=== PATIENT | female | born 1965 | race Caucasian/White ===

== ENCOUNTER 2018-07-16 06:53 | Inpatient (IN) | payer MEDICAID, OTHER ==
[~2018-07-16] VITALS: Ht 162.6 cm; Wt 116.5 kg
[2018-07-16] MEDS ORDERED: morphine 4 MG/ML inj SYRINge IV PRN (07:15)
[2018-07-16] MEDS ORDERED: normal saline 1000ML IV soln IVB ONE (07:15)
[2018-07-16] MEDS ORDERED: ondansetron/PF 4mg/2ml inj IV ONE (07:15)
[2018-07-16] MEDS ORDERED: FLUO20CA39 PO (07:17)
[2018-07-16] MEDS ORDERED: LISI-600 PO (07:17)
[2018-07-16 08:50] LABS: BASOPHILS # (AUTO) 0.1 X10'3 (0-0.2); BASOPHILS % (AUTO) 0.9 % (0-1); EOSINOPHILS # (AUTO) 0.1 X10'3 (0-0.9); HEMATOCRIT 40.8 % (35.0-45.0); HEMOGLOBIN 13.6 g/dl (12.0-16.0); LYMPHOCYTES # (AUTO) 2.3 X10'3 (1.1-4.8); LYMPHOCYTES % (AUTO) 22.5 % (21-51); MEAN CORPUSCULAR HEMOGLOBIN 30.3 PG (27.0-31.0); MEAN CORPUSCULAR HGB CONC 33.3 % (33.0-36.5); MEAN CORPUSCULAR VOLUME 91.2 FL (78-98); MEAN PLATELET VOLUME 8.8 FL (7.4-10.4); MONOCYTES # (AUTO) 0.7 X10'3 (0-0.9); MONOCYTES % (AUTO) 6.8 % (2-12); NEUTROPHILS % (AUTO) 68.8 % (42-75); PLATELET COUNT 372 X10'3 (140-440); RED BLOOD COUNT 4.47 X10'6 (4.20-5.60); RED CELL DISTRIBUTION WIDTH 15.1 % (11.5-14.5); WHITE BLOOD COUNT 10.2 X10'3 (4.5-11.0)
[2018-07-16 08:57] LABS: ALANINE AMINOTRANSFERASE 21 U/L (12-78); ALBUMIN 3.1 G/DL (3.4-5.0); ALBUMIN/GLOBULIN RATIO 0.9 (1.1-1.5); ALKALINE PHOSPHATASE 94 IU/L (46-116); ANION GAP 8 (8-16); ASPARTATE AMINO TRANSFERASE 16 U/L (10-37); BILIRUBIN,TOTAL 0.4 MG/DL (0.1-1.0); BLOOD UREA NITROGEN 15 MG/DL (7-18); BUN/CREATININE RATIO 21.7 (6.6-38.0); CALCIUM 8.1 MG/DL (8.5-10.1); CHLORIDE 104 MMOL/L (99-107); CREATININE 0.69 MG/DL (0.40-0.90); GLUCOSE 109 MG/DL (70-104); PARTIAL THROMBOPLASTIN TIME 25 SECONDS (22-32); POTASSIUM 3.5 MMOL/L (3.5-5.1); PROTHROMBIN TIME 10.8 SECONDS (9.0-12.0); SODIUM 139 MMOL/L (135-145); TOTAL PROTEIN 6.5 G/DL (6.4-8.2); eGFR 89 ML/MIN
[2018-07-16] MEDS ORDERED: potassium Cl 40MEQ/NS 500ml 500 ML IV PRN ×2 (10:05)
[2018-07-16] MEDS ORDERED: potassium Cl 20 mEq SR tablet PO PRN ×2 (10:05)
[2018-07-16] MEDS ORDERED: magnesium 4gm in 100ml NS 100 ML IV PRN (10:05)
[2018-07-16] MEDS: K and/or MAG REPLACEMENT MC SCH (10:05)
[2018-07-16] MEDS ORDERED: acetaminophen 325mg tablet PO PRN ×2 (10:05)
[2018-07-16] MEDS ORDERED: magnesium 1gm/100ml D5W IVPB 100 ML IV PRN (10:05)
[2018-07-16] MEDS ORDERED: HYDROchlorothiazide 25mg tablet PO ONE (10:05)
[2018-07-16] MEDS ORDERED: magnesium hydroxide 30ml (MOM) UD suspension PO PRN (10:05)
[2018-07-16] MEDS ORDERED: acetaminophen 650mg rectal suppository RC PRN (10:05)
[2018-07-16] MEDS ORDERED: mag hydrox/Alum hydrox/simeth 30ml oral suspension PO PRN (10:05)
[2018-07-16] MEDS ORDERED: magnesium Cl slow-release 64mg tablet PO PRN (10:05)
[2018-07-16] MEDS: dextrose 5%-lactated ringers 1,000 ML IV SCH ×3 (10:10→23:46)
[2018-07-16] MEDS ORDERED: PEG 3350/Na sulf,bicarb,Cl/KCl oral sol 4 liter bottle PO ONE (10:50)
[2018-07-16 11:00] VITALS: BP 136/77
[2018-07-16] MEDS: HYDROcodone/acetaminophen 5mg/325mg tablet PO PRN ×2 (16:15→17:57)
[2018-07-16 17:08] LABS: COLOR,URINE YELLOW (Yellow); GLUCOSE, URINE NEGATIVE (Neg); KETONES,URINE NEGATIVE (Neg); LEUKOCYTE ESTERASE ,URINE NEGATIVE (Neg); NITRITES, URINE NEGATIVE (Neg); OCCULT BLOOD,URINE LARGE (Neg); PH,URINE 5.5 (4.8-8.0); PROTEIN,URINE NEGATIVE (Neg); UROBILINOGEN,URINE 0.2 E.U/dL (0.2-1.0)
[2018-07-16 17:13] LABS: CLARITY,URINE Slightly Cloudy (Clear); UA COLLECTION TYPE CLN CATCH MIDSTREAM
[2018-07-16 17:26] LABS: WBC,URINE 0-4 /HPF (0-4)
[2018-07-16 17:27] LABS: BACTERIA,URINE 1+ /HPF (Neg); MUCUS STRANDS FEW /LPF (Neg); SQUAMOUS EPITHELIAL CELL,UR MODERATE /LPF (FEW)
[2018-07-16 18:00] VITALS: BP 138/83
[2018-07-16] MEDS: heparin, porcine 5000 units/ml vial SQ SCH (19:19)
[2018-07-16] MEDS: morphine 2 MG/ML inj. syringe IV PRN ×2 (19:20→23:40)
[2018-07-16] MEDS: ondansetron/PF 4mg/2ml inj IV PRN (23:46)
[2018-07-17] VITALS: BP 153/72
[2018-07-17] MEDS: HYDROcodone/acetaminophen 10/325mg tab PO PRN ×2 (04:01→19:02)
[2018-07-17 05:32] LABS: BASOPHILS % (AUTO) 0.4 % (0-1); EOSINOPHILS % (AUTO) 0.5 % (0-6); HEMATOCRIT 43.3 % (35.0-45.0); HEMOGLOBIN 13.8 g/dl (12.0-16.0); LYMPHOCYTES # (AUTO) 2.1 X10'3 (1.1-4.8); MEAN CORPUSCULAR HEMOGLOBIN 29.3 PG (27.0-31.0); MEAN CORPUSCULAR HGB CONC 31.7 % (33.0-36.5); MEAN CORPUSCULAR VOLUME 92.5 FL (78-98); MEAN PLATELET VOLUME 9.2 FL (7.4-10.4); MONOCYTES # (AUTO) 0.4 X10'3 (0-0.9); MONOCYTES % (AUTO) 4.5 % (2-12); NEUTROPHILS % (AUTO) 72.6 % (42-75); PLATELET COUNT 383 X10'3 (140-440); RED BLOOD COUNT 4.68 X10'6 (4.20-5.60); RED CELL DISTRIBUTION WIDTH 15.3 % (11.5-14.5); WHITE BLOOD COUNT 9.6 X10'3 (4.5-11.0)
[2018-07-17 06:11] LABS: ALANINE AMINOTRANSFERASE 21 U/L (12-78); ALBUMIN 3.2 G/DL (3.4-5.0); ALBUMIN/GLOBULIN RATIO 0.9 (1.1-1.5); ALKALINE PHOSPHATASE 96 IU/L (46-116); ANION GAP 8 (8-16); ASPARTATE AMINO TRANSFERASE 18 U/L (10-37); BILIRUBIN,TOTAL 0.4 MG/DL (0.1-1.0); BLOOD UREA NITROGEN 8 MG/DL (7-18); BUN/CREATININE RATIO 11.9 (6.6-38.0); CALCIUM 8.7 MG/DL (8.5-10.1); CHLORIDE 100 MMOL/L (99-107); CREATININE 0.67 MG/DL (0.40-0.90); GLUCOSE 132 MG/DL (70-104); MAGNESIUM 1.7 MG/DL (1.5-2.4); POTASSIUM 3.6 MMOL/L (3.5-5.1); SODIUM 138 MMOL/L (135-145); TOTAL CARBON DIOXIDE 29.8 MMOL/L (24-32); TOTAL PROTEIN 6.6 G/DL (6.4-8.2); eGFR > 90 ML/MIN
[2018-07-17] MEDS: lisinopril 20mg tablet PO SCH (07:49)
[2018-07-17] MEDS: FLUoxetine 20mg capsule PO SCH (07:49)
[2018-07-17] MEDS: ondansetron/PF 4mg/2ml inj IV PRN ×2 (07:50→20:41)
[2018-07-17] MEDS: morphine 2 MG/ML inj. syringe IV PRN (07:51)
[2018-07-17] MEDS: heparin, porcine 5000 units/ml vial SQ SCH ×2 (07:52→19:01)
[2018-07-17] MEDS: K and/or MAG REPLACEMENT MC SCH (08:00)
[2018-07-17 11:00] VITALS: BP 128/66
[2018-07-17] MEDS: dextrose 5%-lactated ringers 1,000 ML IV SCH ×2 (11:49→21:32)
[2018-07-17] MEDS ORDERED: pantoprazole 40 MG vial IV ONE (14:55)
[2018-07-17 18:00] VITALS: BP 113/67
[2018-07-17] MEDS ORDERED: PEG 3350/Na sulf,bicarb,Cl/KCl oral sol 4 liter bottle PO ONE (19:55)
[2018-07-17] MEDS: temazepam 15mg capsule PO PRN (20:41)
[2018-07-18] VITALS (9 sets, daily range): BP systolic 121–177; BP diastolic 73–101
[2018-07-18] MEDS: HYDROcodone/acetaminophen 10/325mg tab PO PRN (04:21)
[2018-07-18 05:11] LABS: BASOPHILS # (AUTO) 0.1 X10'3 (0-0.2); BASOPHILS % (AUTO) 1.1 % (0-1); EOSINOPHILS # (AUTO) 0.1 X10'3 (0-0.9); EOSINOPHILS % (AUTO) 0.8 % (0-6); HEMATOCRIT 39.6 % (35.0-45.0); LYMPHOCYTES # (AUTO) 1.6 X10'3 (1.1-4.8); LYMPHOCYTES % (AUTO) 21.1 % (21-51); MEAN CORPUSCULAR HEMOGLOBIN 30.2 PG (27.0-31.0); MEAN CORPUSCULAR HGB CONC 32.8 % (33.0-36.5); MEAN CORPUSCULAR VOLUME 91.9 FL (78-98); MEAN PLATELET VOLUME 8.7 FL (7.4-10.4); MONOCYTES # (AUTO) 0.5 X10'3 (0-0.9); MONOCYTES % (AUTO) 6.9 % (2-12); NEUTROPHILS # (AUTO) 5.2 X10'3 (1.8-7.7); NEUTROPHILS % (AUTO) 70.1 % (42-75); PLATELET COUNT 327 X10'3 (140-440); RED BLOOD COUNT 4.31 X10'6 (4.20-5.60); RED CELL DISTRIBUTION WIDTH 15.1 % (11.5-14.5); WHITE BLOOD COUNT 7.5 X10'3 (4.5-11.0)
[2018-07-18 05:16] LABS: ALANINE AMINOTRANSFERASE 20 U/L (12-78); ALBUMIN 2.8 G/DL (3.4-5.0); ALKALINE PHOSPHATASE 88 IU/L (46-116); ANION GAP 6 (8-16); ASPARTATE AMINO TRANSFERASE 13 U/L (10-37); BILIRUBIN,TOTAL 0.3 MG/DL (0.1-1.0); BLOOD UREA NITROGEN 7 MG/DL (7-18); BUN/CREATININE RATIO 10.4 (6.6-38.0); CALCIUM 8.2 MG/DL (8.5-10.1); CHLORIDE 102 MMOL/L (99-107); CREATININE 0.67 MG/DL (0.40-0.90); GLUCOSE 128 MG/DL (70-104); MAGNESIUM 1.7 MG/DL (1.5-2.4); PHOSPHORUS 3.4 MG/DL (2.3-4.5); POTASSIUM 3.5 MMOL/L (3.5-5.1); SODIUM 140 MMOL/L (135-145); TOTAL CARBON DIOXIDE 31.8 MMOL/L (24-32); TOTAL PROTEIN 5.7 G/DL (6.4-8.2); eGFR > 90 ML/MIN
[2018-07-18] MEDS: dextrose 5%-lactated ringers 1,000 ML IV SCH ×2 (07:55→20:30)
[2018-07-18] MEDS: pantoprazole 40 MG vial IV SCH (07:56)
[2018-07-18] MEDS: FLUoxetine 20mg capsule PO SCH (07:56)
[2018-07-18] MEDS: lisinopril 20mg tablet PO SCH (07:56)
[2018-07-18] MEDS: heparin, porcine 5000 units/ml vial SQ SCH ×2 (07:57→19:12)
[2018-07-18] MEDS: K and/or MAG REPLACEMENT MC SCH (07:57)
[2018-07-18] MEDS: morphine 2 MG/ML inj. syringe IV PRN (08:15)
[2018-07-18] MEDS ORDERED: MIDAZolam 5mg/5ml vial ONE (12:11)
[2018-07-18] MEDS ORDERED: fentaNYL/PF 50MCG/1 ML 2ML syringe ONE (12:11)
[2018-07-18] MEDS ORDERED: bisacodyl 5mg tablet.DR PO PRN (14:45)
[2018-07-18] MEDS: ondansetron/PF 4mg/2ml inj IV PRN (15:36)
[2018-07-18] MEDS: metoclopramide 5 mg/ml inj IV PRN (19:11)
[2018-07-18] MEDS: temazepam 15mg capsule PO PRN (20:30)
[2018-07-19] VITALS (15 sets, daily range): BP systolic 114–156; BP diastolic 57–100
[2018-07-19] MEDS: ondansetron/PF 4mg/2ml inj IV PRN ×2 (01:44→23:59)
[2018-07-19] MEDS: K and/or MAG REPLACEMENT MC SCH (08:00)
[2018-07-19] MEDS: FLUoxetine 20mg capsule PO SCH (08:08)
[2018-07-19] MEDS: heparin, porcine 5000 units/ml vial SQ SCH ×2 (08:08→21:10)
[2018-07-19] MEDS: lisinopril 20mg tablet PO SCH (08:08)
[2018-07-19] MEDS: pantoprazole 40 MG vial IV SCH (08:09)
[2018-07-19] MEDS: dextrose 5%-lactated ringers 1,000 ML IV SCH ×2 (08:10→23:47)
[2018-07-19] MEDS: HYDROcodone/acetaminophen 5mg/325mg tablet PO PRN (08:21)
[2018-07-19 12:33] LABS: BASOPHILS % (AUTO) 0.3 % (0-1); EOSINOPHILS # (AUTO) 0.1 X10'3 (0-0.9); EOSINOPHILS % (AUTO) 0.5 % (0-6); HEMATOCRIT 43.6 % (35.0-45.0); HEMOGLOBIN 14.5 g/dl (12.0-16.0); LYMPHOCYTES # (AUTO) 1.3 X10'3 (1.1-4.8); LYMPHOCYTES % (AUTO) 10.3 % (21-51); MEAN CORPUSCULAR HEMOGLOBIN 30.4 PG (27.0-31.0); MEAN CORPUSCULAR HGB CONC 33.3 % (33.0-36.5); MEAN CORPUSCULAR VOLUME 91.1 FL (78-98); MEAN PLATELET VOLUME 8.2 FL (7.4-10.4); MONOCYTES # (AUTO) 0.6 X10'3 (0-0.9); MONOCYTES % (AUTO) 4.5 % (2-12); NEUTROPHILS # (AUTO) 10.6 X10'3 (1.8-7.7); NEUTROPHILS % (AUTO) 84.4 % (42-75); PLATELET COUNT 416 X10'3 (140-440); RED BLOOD COUNT 4.79 X10'6 (4.20-5.60); RED CELL DISTRIBUTION WIDTH 15.3 % (11.5-14.5); WHITE BLOOD COUNT 12.5 X10'3 (4.5-11.0)
[2018-07-19 12:48] LABS: INR 1.1 INR; PARTIAL THROMBOPLASTIN TIME 23 SECONDS (22-32)
[2018-07-19 12:53] LABS: ALANINE AMINOTRANSFERASE 39 U/L (12-78); ALBUMIN 2.8 G/DL (3.4-5.0); ALBUMIN/GLOBULIN RATIO 0.9 (1.1-1.5); ALKALINE PHOSPHATASE 88 IU/L (46-116); ANION GAP 7 (8-16); ASPARTATE AMINO TRANSFERASE 22 U/L (10-37); BILIRUBIN,TOTAL 0.5 MG/DL (0.1-1.0); BLOOD UREA NITROGEN 17 MG/DL (7-18); BUN/CREATININE RATIO 18.5 (6.6-38.0); CALCIUM 8.6 MG/DL (8.5-10.1); CHLORIDE 102 MMOL/L (99-107); CREATININE 0.92 MG/DL (0.40-0.90); GLUCOSE 142 MG/DL (70-104); MAGNESIUM 1.7 MG/DL (1.5-2.4); PHOSPHORUS 4.1 MG/DL (2.3-4.5); POTASSIUM 3.3 MMOL/L (3.5-5.1); SODIUM 140 MMOL/L (135-145); TOTAL CARBON DIOXIDE 30.9 MMOL/L (24-32); TOTAL PROTEIN 5.9 G/DL (6.4-8.2); eGFR 64 ML/MIN
[2018-07-19] MEDS ORDERED: rocuronium 10mg/ml inj IV ONE ×2 (13:45→13:52)
[2018-07-19] MEDS ORDERED: ePHEDrine 50MG/ML INJ. ONE (13:45)
[2018-07-19] MEDS ORDERED: sevoflurane 250ml liquid IH ONE (13:45)
[2018-07-19] MEDS ORDERED: fentaNYL /PF 50mcg/ml 5ml ampule ONE (13:52)
[2018-07-19] MEDS ORDERED: midazolam 2 mg/2 ml injection ONE ×2 (13:52→16:49)
[2018-07-19] MEDS ORDERED: propofol inj 20 ML IV ONE (13:52)
[2018-07-19] MEDS ORDERED: ceFOXitin 1000 MG inj ONE ×2 (14:30)
[2018-07-19] MEDS ORDERED: ringers solution, lacted 1,000 ML IV SCH (15:13)
[2018-07-19] MEDS ORDERED: labetalol 20mg/4ml (5mg/ml) syringe IV PRN (15:15)
[2018-07-19] MEDS ORDERED: ondansetron/PF 4mg/2ml inj IV PRN (15:15)
[2018-07-19] MEDS ORDERED: meperidine/PF 25mg/ml syringe IV PRN ×2 (15:15)
[2018-07-19] MEDS ORDERED: morphine 4 MG/ML inj SYRINge IV PRN ×2 (15:15)
[2018-07-19] MEDS ORDERED: proCHLORperazine 10 MG/2 ml inj IV PRN (15:15)
[2018-07-19] MEDS ORDERED: glycopyrrolate 0.2mg/ml inj ONE (16:48)
[2018-07-19] MEDS ORDERED: neostigmine methylsulfate 1 MG/ML 10ml vial ONE (16:48)
[2018-07-19] MEDS ORDERED: fentaNYL/PF 50MCG/1 ML 2ML syringe ONE (16:54)
[2018-07-19] MEDS: meperidine/PF 25mg/ml syringe IV PRN ×2 (18:24→18:47)
[2018-07-19] MEDS: morphine 2 MG/ML inj. syringe IV PRN ×2 (19:09→19:53)
[2018-07-19 20:17] LABS: HEMATOCRIT 40.3 % (35.0-45.0); HEMOGLOBIN 13.2 g/dl (12.0-16.0); MEAN CORPUSCULAR HEMOGLOBIN 30.2 PG (27.0-31.0); MEAN CORPUSCULAR HGB CONC 32.8 % (33.0-36.5); MEAN CORPUSCULAR VOLUME 92.1 FL (78-98); MEAN PLATELET VOLUME 8.7 FL (7.4-10.4); PLATELET COUNT 360 X10'3 (140-440); RED BLOOD COUNT 4.37 X10'6 (4.20-5.60); RED CELL DISTRIBUTION WIDTH 15.4 % (11.5-14.5); WHITE BLOOD COUNT 11.4 X10'3 (4.5-11.0)
[2018-07-19 20:18] LABS: ALBUMIN 2.9 G/DL (3.4-5.0); ANION GAP 6 (8-16); BLOOD UREA NITROGEN 17 MG/DL (7-18); BUN/CREATININE RATIO 18.5 (6.6-38.0); CALCIUM 7.9 MG/DL (8.5-10.1); CHLORIDE 104 MMOL/L (99-107); CREATININE 0.92 MG/DL (0.40-0.90); GLUCOSE 148 MG/DL (70-104); MAGNESIUM 1.5 MG/DL (1.5-2.4); POTASSIUM 3.3 MMOL/L (3.5-5.1); SODIUM 142 MMOL/L (135-145); TOTAL CARBON DIOXIDE 31.9 MMOL/L (24-32); eGFR 64 ML/MIN
[2018-07-19] MEDS: HYDROmorphone 1 mg/ml syringe IV PRN (23:42)
[2018-07-20] VITALS (23 sets, daily range): BP systolic 85–132; BP diastolic 50–74
[2018-07-20] MEDS: temazepam 15mg capsule PO PRN ×2 (00:10→19:42)
[2018-07-20] MEDS ORDERED: potassium Cl 20 mEq SR tablet PO PRN (01:10)
[2018-07-20] MEDS ORDERED: potassium Cl 40MEQ/NS 500ml 500 ML IV PRN ×2 (01:10)
[2018-07-20] MEDS: potassium Cl 20 mEq SR tablet PO PRN ×3 (03:43→11:36)
[2018-07-20] MEDS: HYDROmorphone 1 mg/ml syringe IV PRN (03:43)
[2018-07-20] MEDS: metoclopramide 5 mg/ml inj IV PRN (03:49)
[2018-07-20] MEDS: dextrose 5%-lactated ringers 1,000 ML IV SCH ×2 (04:10→08:19)
[2018-07-20] MEDS: pantoprazole 40 MG vial IV SCH (07:28)
[2018-07-20] MEDS: HYDROcodone/acetaminophen 10/325mg tab PO PRN ×5 (07:29→23:30)
[2018-07-20] MEDS: ondansetron/PF 4mg/2ml inj IV PRN (07:29)
[2018-07-20] MEDS: FLUoxetine 20mg capsule PO SCH (07:30)
[2018-07-20] MEDS: heparin, porcine 5000 units/ml vial SQ SCH ×2 (07:30→19:32)
[2018-07-20] MEDS: K and/or MAG REPLACEMENT MC SCH (07:30)
[2018-07-20] MEDS: lisinopril 20mg tablet PO SCH (07:30)
[2018-07-20] MEDS ORDERED: piperacillin/tazo 3.375gm/50ml 50 ML IV SCH (08:35)
[2018-07-20 09:04] LABS: BASOPHILS % (AUTO) 0.1 % (0-1); EOSINOPHILS % (AUTO) 0.1 % (0-6); HEMATOCRIT 41.2 % (35.0-45.0); HEMOGLOBIN 13.5 g/dl (12.0-16.0); LYMPHOCYTES # (AUTO) 0.7 X10'3 (1.1-4.8); LYMPHOCYTES % (AUTO) 8.8 % (21-51); MEAN CORPUSCULAR HEMOGLOBIN 30.1 PG (27.0-31.0); MEAN CORPUSCULAR HGB CONC 32.8 % (33.0-36.5); MEAN CORPUSCULAR VOLUME 91.7 FL (78-98); MEAN PLATELET VOLUME 8.8 FL (7.4-10.4); MONOCYTES # (AUTO) 0.5 X10'3 (0-0.9); MONOCYTES % (AUTO) 6.7 % (2-12); NEUTROPHILS # (AUTO) 6.8 X10'3 (1.8-7.7); NEUTROPHILS % (AUTO) 84.3 % (42-75); PLATELET COUNT 417 X10'3 (140-440); RED BLOOD COUNT 4.49 X10'6 (4.20-5.60); RED CELL DISTRIBUTION WIDTH 15.9 % (11.5-14.5)
[2018-07-20 09:07] LABS: ALANINE AMINOTRANSFERASE 29 U/L (12-78); ALBUMIN 2.7 G/DL (3.4-5.0); ALBUMIN/GLOBULIN RATIO 0.9 (1.1-1.5); ALKALINE PHOSPHATASE 72 IU/L (46-116); ANION GAP 10 (8-16); ASPARTATE AMINO TRANSFERASE 19 U/L (10-37); BILIRUBIN,TOTAL 0.7 MG/DL (0.1-1.0); BLOOD UREA NITROGEN 26 MG/DL (7-18); CALCIUM 8.1 MG/DL (8.5-10.1); CHLORIDE 101 MMOL/L (99-107); CREATININE 2.16 MG/DL (0.40-0.90); GLUCOSE 176 MG/DL (70-104); MAGNESIUM 1.4 MG/DL (1.5-2.4); PHOSPHORUS 5.1 MG/DL (2.3-4.5); SODIUM 141 MMOL/L (135-145); TOTAL CARBON DIOXIDE 30.5 MMOL/L (24-32); TOTAL PROTEIN 5.7 G/DL (6.4-8.2); eGFR 24 ML/MIN
[2018-07-20 09:35] LABS: ANISOCYTOSIS 1+; PLATELET ESTIMATE NORMAL; TOTAL CELLS COUNTED 100
[2018-07-20] MEDS: magnesium Cl slow-release 64mg tablet PO PRN ×2 (10:16→23:30)
[2018-07-20] MEDS: ringers solution, lacted 1,000 ML IV SCH ×2 (11:35→19:33)
[2018-07-20] MEDS: morphine 2 MG/ML inj. syringe IV PRN (13:10)
[2018-07-20] MEDS: piperacillin/tazobactam inj. 2.25 GM in normal saline 50ml IV IV SCH ×2 (13:48→19:31)
[2018-07-20 14:56] LABS: BASOPHILS % (AUTO) 0 % (0-1); EOSINOPHILS % (AUTO) 0.1 % (0-6); HEMOGLOBIN 12.7 g/dl (12.0-16.0); LYMPHOCYTES # (AUTO) 0.9 X10'3 (1.1-4.8); MEAN CORPUSCULAR HEMOGLOBIN 30.4 PG (27.0-31.0); MEAN CORPUSCULAR HGB CONC 32.6 % (33.0-36.5); MEAN CORPUSCULAR VOLUME 93.2 FL (78-98); MONOCYTES # (AUTO) 0.4 X10'3 (0-0.9); MONOCYTES % (AUTO) 4.3 % (2-12); NEUTROPHILS # (AUTO) 8.9 X10'3 (1.8-7.7); NEUTROPHILS % (AUTO) 86.6 % (42-75); PLATELET COUNT 382 X10'3 (140-440); RED BLOOD COUNT 4.18 X10'6 (4.20-5.60); RED CELL DISTRIBUTION WIDTH 15.7 % (11.5-14.5); WHITE BLOOD COUNT 10.2 X10'3 (4.5-11.0)
[2018-07-20 15:10] LABS: ALBUMIN 2.5 G/DL (3.4-5.0); ANION GAP 8 (8-16); BLOOD UREA NITROGEN 32 MG/DL (7-18); CALCIUM 8.4 MG/DL (8.5-10.1); CHLORIDE 100 MMOL/L (99-107); CREATININE 2.28 MG/DL (0.40-0.90); GLUCOSE 136 MG/DL (70-104); POTASSIUM 4.1 MMOL/L (3.5-5.1); SODIUM 140 MMOL/L (135-145); TOTAL CARBON DIOXIDE 31.9 MMOL/L (24-32); eGFR 22 ML/MIN
[2018-07-21] VITALS (25 sets, daily range): BP systolic 113–177; BP diastolic 57–94
[2018-07-21] MEDS: piperacillin/tazobactam inj. 2.25 GM in normal saline 50ml IV IV SCH ×4 (02:07→20:03)
[2018-07-21] MEDS: HYDROcodone/acetaminophen 10/325mg tab PO PRN ×5 (03:30→22:02)
[2018-07-21] MEDS: ringers solution, lacted 1,000 ML IV SCH ×3 (03:31→20:12)
[2018-07-21 05:29] LABS: BASOPHILS % (AUTO) 0.1 % (0-1); EOSINOPHILS # (AUTO) 0.1 X10'3 (0-0.9); EOSINOPHILS % (AUTO) 0.7 % (0-6); HEMATOCRIT 35.6 % (35.0-45.0); HEMOGLOBIN 11.7 g/dl (12.0-16.0); LYMPHOCYTES # (AUTO) 0.9 X10'3 (1.1-4.8); LYMPHOCYTES % (AUTO) 11.9 % (21-51); MEAN CORPUSCULAR HEMOGLOBIN 30.2 PG (27.0-31.0); MEAN CORPUSCULAR VOLUME 91.5 FL (78-98); MEAN PLATELET VOLUME 8.7 FL (7.4-10.4); MONOCYTES # (AUTO) 0.7 X10'3 (0-0.9); MONOCYTES % (AUTO) 8.8 % (2-12); NEUTROPHILS # (AUTO) 6.1 X10'3 (1.8-7.7); NEUTROPHILS % (AUTO) 78.5 % (42-75); PLATELET COUNT 330 X10'3 (140-440); RED BLOOD COUNT 3.89 X10'6 (4.20-5.60); RED CELL DISTRIBUTION WIDTH 15.7 % (11.5-14.5); WHITE BLOOD COUNT 7.8 X10'3 (4.5-11.0)
[2018-07-21 05:55] LABS: ALANINE AMINOTRANSFERASE 22 U/L (12-78); ALBUMIN 2.4 G/DL (3.4-5.0); ALBUMIN/GLOBULIN RATIO 0.7 (1.1-1.5); ALKALINE PHOSPHATASE 79 IU/L (46-116); ANION GAP 9 (8-16); ASPARTATE AMINO TRANSFERASE 13 U/L (10-37); BILIRUBIN,TOTAL 0.6 MG/DL (0.1-1.0); BLOOD UREA NITROGEN 36 MG/DL (7-18); CALCIUM 8.4 MG/DL (8.5-10.1); CHLORIDE 100 MMOL/L (99-107); CREATININE 1.44 MG/DL (0.40-0.90); GLUCOSE 130 MG/DL (70-104); MAGNESIUM 1.6 MG/DL (1.5-2.4); PHOSPHORUS 3.7 MG/DL (2.3-4.5); POTASSIUM 3.8 MMOL/L (3.5-5.1); SODIUM 137 MMOL/L (135-145); TOTAL CARBON DIOXIDE 28.5 MMOL/L (24-32); TOTAL PROTEIN 5.7 G/DL (6.4-8.2); eGFR 38 ML/MIN
[2018-07-21] MEDS: pantoprazole 40 MG vial IV SCH (07:43)
[2018-07-21] MEDS: FLUoxetine 20mg capsule PO SCH (07:44)
[2018-07-21] MEDS: lisinopril 20mg tablet PO SCH (07:44)
[2018-07-21] MEDS: heparin, porcine 5000 units/ml vial SQ SCH ×2 (07:45→20:03)
[2018-07-21] MEDS: K and/or MAG REPLACEMENT MC SCH (07:54)
[2018-07-21 10:48] LABS: CLARITY,URINE TURBID (Clear); COLOR,URINE YELLOW (Yellow); GLUCOSE, URINE NEGATIVE (Neg); KETONES,URINE NEGATIVE (Neg); LEUKOCYTE ESTERASE ,URINE NEGATIVE (Neg); NITRITES, URINE NEGATIVE (Neg); OCCULT BLOOD,URINE MODERATE (Neg); PROTEIN,URINE 30 mg/dl (Neg); UROBILINOGEN,URINE 0.2 E.U/dL (0.2-1.0)
[2018-07-21 10:50] LABS: UA COLLECTION TYPE FOLEY CATH
[2018-07-21] MEDS: nicotine 14mg patch - 24hr TD SCH (10:52)
[2018-07-21 10:58] LABS: AMORPHOUS URATES 4+
[2018-07-21 11:59] LABS: CAL OXALATE CRYSTALS FEW /HPF (NEGATIVE)
[2018-07-21 12:28] LABS: SODIUM,URINE RANDOM < 15 MEQ/L
[2018-07-21 13:23] LABS: CLARITY,URINE SLIGHTLY CLOUDY (Clear); COLOR,URINE YELLOW (Yellow); GLUCOSE, URINE NEGATIVE (Neg); KETONES,URINE NEGATIVE (Neg); LEUKOCYTE ESTERASE ,URINE NEGATIVE (Neg); NITRITES, URINE NEGATIVE (Neg); OCCULT BLOOD,URINE MODERATE (Neg); PROTEIN,URINE 30 mg/dl (Neg); UROBILINOGEN,URINE 0.2 E.U/dL (0.2-1.0)
[2018-07-21 13:52] LABS: UA COLLECTION TYPE FOLEY CATH
[2018-07-21 13:55] LABS: BACTERIA,URINE 1+ /HPF (Neg); RBC,URINE 0-2 /HPF (0-2); WBC,URINE 0-4 /HPF (0-4)
[2018-07-21 14:04] LABS: AMORPHOUS URATES 1+; CAL OXALATE CRYSTALS FEW /HPF (NEGATIVE); HYALINE CASTS 0-3 /LPF (NEGATIVE); SQUAMOUS EPITHELIAL CELL,UR FEW /LPF (FEW)
[2018-07-21 14:06] LABS: MUCUS STRANDS FEW /LPF (Neg)
[2018-07-21] MEDS: methylnaltrexone br 12mg/0.6ml inj***SubQ only SQ SCH (14:52)
[2018-07-21 15:09] LABS: UA EOSINOPHILS NO EOS /HPF
[2018-07-21] MEDS: lactobacillus rhamnosus 10,000 MMU CELLS/CAPSULE PO SCH (20:03)
[2018-07-21] MEDS: temazepam 15mg capsule PO PRN (20:10)
[2018-07-22] MEDS: piperacillin/tazobactam inj. 2.25 GM in normal saline 50ml IV IV SCH ×4 (02:23→20:15)
[2018-07-22] MEDS: ondansetron/PF 4mg/2ml inj IV PRN ×2 (05:44→20:25)
[2018-07-22] MEDS: ringers solution, lacted 1,000 ML IV SCH ×3 (05:44→15:36)
[2018-07-22] MEDS: HYDROmorphone 1 mg/ml syringe IV PRN ×2 (05:47→22:18)
[2018-07-22 07:00] VITALS: BP 148/78
[2018-07-22] MEDS: FLUoxetine 20mg capsule PO SCH (08:24)
[2018-07-22] MEDS: lactobacillus rhamnosus 10,000 MMU CELLS/CAPSULE PO SCH ×2 (08:24→20:15)
[2018-07-22] MEDS: lisinopril 20mg tablet PO SCH (08:24)
[2018-07-22] MEDS: heparin, porcine 5000 units/ml vial SQ SCH ×2 (08:25→20:15)
[2018-07-22] MEDS: nicotine 14mg patch - 24hr TD SCH (08:31)
[2018-07-22] MEDS: K and/or MAG REPLACEMENT MC SCH (08:35)
[2018-07-22] MEDS: HYDROcodone/acetaminophen 10/325mg tab PO PRN ×3 (09:34→20:15)
[2018-07-22 12:07] LABS: BASOPHILS % (AUTO) 0.9 % (0-1); EOSINOPHILS # (AUTO) 0.1 X10'3 (0-0.9); EOSINOPHILS % (AUTO) 1.6 % (0-6); HEMOGLOBIN 11.3 g/dl (12.0-16.0); LYMPHOCYTES # (AUTO) 0.9 X10'3 (1.1-4.8); LYMPHOCYTES % (AUTO) 17.7 % (21-51); MEAN CORPUSCULAR HEMOGLOBIN 30.2 PG (27.0-31.0); MEAN CORPUSCULAR HGB CONC 33.3 % (33.0-36.5); MEAN CORPUSCULAR VOLUME 90.7 FL (78-98); MEAN PLATELET VOLUME 8.4 FL (7.4-10.4); MONOCYTES # (AUTO) 0.6 X10'3 (0-0.9); MONOCYTES % (AUTO) 11.6 % (2-12); NEUTROPHILS # (AUTO) 3.6 X10'3 (1.8-7.7); NEUTROPHILS % (AUTO) 68.2 % (42-75); PLATELET COUNT 422 X10'3 (140-440); RED BLOOD COUNT 3.74 X10'6 (4.20-5.60); RED CELL DISTRIBUTION WIDTH 15.5 % (11.5-14.5); WHITE BLOOD COUNT 5.3 X10'3 (4.5-11.0)
[2018-07-22 12:18] LABS: ALANINE AMINOTRANSFERASE 18 U/L (12-78); ALBUMIN 2.3 G/DL (3.4-5.0); ALBUMIN/GLOBULIN RATIO 0.6 (1.1-1.5); ALKALINE PHOSPHATASE 86 IU/L (46-116); ANION GAP 8 (8-16); ASPARTATE AMINO TRANSFERASE 19 U/L (10-37); BILIRUBIN,TOTAL 0.5 MG/DL (0.1-1.0); BLOOD UREA NITROGEN 20 MG/DL (7-18); BUN/CREATININE RATIO 25.6 (6.6-38.0); CALCIUM 8.2 MG/DL (8.5-10.1); CHLORIDE 98 MMOL/L (99-107); CREATININE 0.78 MG/DL (0.40-0.90); GLUCOSE 107 MG/DL (70-104); MAGNESIUM 1.7 MG/DL (1.5-2.4); PHOSPHORUS 2.2 MG/DL (2.3-4.5); POTASSIUM 3.7 MMOL/L (3.5-5.1); SODIUM 138 MMOL/L (135-145); TOTAL CARBON DIOXIDE 31.9 MMOL/L (24-32); TOTAL PROTEIN 6.2 G/DL (6.4-8.2); eGFR 78 ML/MIN
[2018-07-22 12:43] VITALS: BP 145/82
[2018-07-22 20:00] VITALS: BP 168/95
[2018-07-22] MEDS: temazepam 15mg capsule PO PRN (21:33)
[2018-07-23] VITALS: BP 163/85
[2018-07-23] MEDS: ringers solution, lacted 1,000 ML IV SCH ×3 (00:19→17:50)
[2018-07-23] MEDS: piperacillin/tazobactam inj. 2.25 GM in normal saline 50ml IV IV SCH ×2 (01:32→08:05)
[2018-07-23 05:56] LABS: BASOPHILS % (AUTO) 0.1 % (0-1); EOSINOPHILS # (AUTO) 0.1 X10'3 (0-0.9); EOSINOPHILS % (AUTO) 2.1 % (0-6); HEMATOCRIT 34.6 % (35.0-45.0); HEMOGLOBIN 11.3 g/dl (12.0-16.0); LYMPHOCYTES # (AUTO) 1.3 X10'3 (1.1-4.8); LYMPHOCYTES % (AUTO) 19.4 % (21-51); MEAN CORPUSCULAR HEMOGLOBIN 30.1 PG (27.0-31.0); MEAN CORPUSCULAR HGB CONC 32.6 % (33.0-36.5); MEAN CORPUSCULAR VOLUME 92.3 FL (78-98); MEAN PLATELET VOLUME 8.2 FL (7.4-10.4); MONOCYTES # (AUTO) 0.8 X10'3 (0-0.9); NEUTROPHILS # (AUTO) 4.2 X10'3 (1.8-7.7); NEUTROPHILS % (AUTO) 65.4 % (42-75); PLATELET COUNT 402 X10'3 (140-440); RED BLOOD COUNT 3.74 X10'6 (4.20-5.60); RED CELL DISTRIBUTION WIDTH 15.2 % (11.5-14.5); WHITE BLOOD COUNT 6.5 X10'3 (4.5-11.0)
[2018-07-23 06:21] LABS: ALANINE AMINOTRANSFERASE 13 U/L (12-78); ALBUMIN 2.1 G/DL (3.4-5.0); ALBUMIN/GLOBULIN RATIO 0.6 (1.1-1.5); ALKALINE PHOSPHATASE 73 IU/L (46-116); ANION GAP 11 (8-16); ASPARTATE AMINO TRANSFERASE 17 U/L (10-37); BILIRUBIN,TOTAL 0.5 MG/DL (0.1-1.0); BLOOD UREA NITROGEN 15 MG/DL (7-18); CALCIUM 8.6 MG/DL (8.5-10.1); CHLORIDE 99 MMOL/L (99-107); GLUCOSE 99 MG/DL (70-104); MAGNESIUM 1.7 MG/DL (1.5-2.4); PHOSPHORUS 2.8 MG/DL (2.3-4.5); POTASSIUM 3.7 MMOL/L (3.5-5.1); SODIUM 138 MMOL/L (135-145); TOTAL CARBON DIOXIDE 27.8 MMOL/L (24-32); TOTAL PROTEIN 5.9 G/DL (6.4-8.2); eGFR > 90 ML/MIN
[2018-07-23 07:00] VITALS: BP 155/85
[2018-07-23] MEDS: K and/or MAG REPLACEMENT MC SCH (07:57)
[2018-07-23] MEDS: FLUoxetine 20mg capsule PO SCH (08:03)
[2018-07-23] MEDS: lisinopril 20mg tablet PO SCH (08:03)
[2018-07-23] MEDS: lactobacillus rhamnosus 10,000 MMU CELLS/CAPSULE PO SCH ×2 (08:03→20:00)
[2018-07-23] MEDS: heparin, porcine 5000 units/ml vial SQ SCH ×2 (08:04→20:15)
[2018-07-23] MEDS: methylnaltrexone br 12mg/0.6ml inj***SubQ only SQ SCH (08:04)
[2018-07-23] MEDS: nicotine 14mg patch - 24hr TD SCH (08:10)
[2018-07-23] MEDS: ondansetron/PF 4mg/2ml inj IV PRN ×3 (09:55→23:34)
[2018-07-23] MEDS: HYDROmorphone 1 mg/ml syringe IV PRN ×3 (10:00→20:14)
[2018-07-23 11:26] VITALS: BP_SYST 148; BP_SYST 155; BP_DIAS 85; BP_DIAS 87
[2018-07-23] MEDS: piperacillin/tazo 3.375gm/50ml 50 ML IV SCH ×2 (14:01→20:14)
[2018-07-23 20:00] VITALS: BP 138/79
[2018-07-23] MEDS: temazepam 15mg capsule PO PRN (23:18)
[2018-07-23] MEDS: HYDROcodone/acetaminophen 10/325mg tab PO PRN (23:26)
[2018-07-24] VITALS: BP 148/90
[2018-07-24] MEDS: ringers solution, lacted 1,000 ML IV SCH ×4 (01:55→22:32)
[2018-07-24] MEDS: piperacillin/tazo 3.375gm/50ml 50 ML IV SCH ×4 (02:37→20:15)
[2018-07-24] MEDS: ondansetron/PF 4mg/2ml inj IV PRN (05:43)
[2018-07-24] MEDS: HYDROcodone/acetaminophen 10/325mg tab PO PRN ×2 (05:43→20:18)
[2018-07-24 05:54] LABS: BASOPHILS % (AUTO) 0.3 % (0-1); EOSINOPHILS # (AUTO) 0.1 X10'3 (0-0.9); EOSINOPHILS % (AUTO) 1.6 % (0-6); HEMATOCRIT 32.4 % (35.0-45.0); HEMOGLOBIN 10.8 g/dl (12.0-16.0); LYMPHOCYTES # (AUTO) 1.2 X10'3 (1.1-4.8); MEAN CORPUSCULAR HEMOGLOBIN 30.3 PG (27.0-31.0); MEAN CORPUSCULAR HGB CONC 33.4 % (33.0-36.5); MEAN CORPUSCULAR VOLUME 90.8 FL (78-98); MEAN PLATELET VOLUME 8.2 FL (7.4-10.4); MONOCYTES # (AUTO) 0.9 X10'3 (0-0.9); MONOCYTES % (AUTO) 13.7 % (2-12); NEUTROPHILS # (AUTO) 4.4 X10'3 (1.8-7.7); NEUTROPHILS % (AUTO) 66.4 % (42-75); PLATELET COUNT 494 X10'3 (140-440); RED BLOOD COUNT 3.57 X10'6 (4.20-5.60); RED CELL DISTRIBUTION WIDTH 15.7 % (11.5-14.5); WHITE BLOOD COUNT 6.6 X10'3 (4.5-11.0)
[2018-07-24 06:23] LABS: ALANINE AMINOTRANSFERASE 19 U/L (12-78); ALBUMIN 2.1 G/DL (3.4-5.0); ALBUMIN/GLOBULIN RATIO 0.6 (1.1-1.5); ALKALINE PHOSPHATASE 83 IU/L (46-116); ANION GAP 13 (8-16); ASPARTATE AMINO TRANSFERASE 21 U/L (10-37); BILIRUBIN,TOTAL 0.5 MG/DL (0.1-1.0); BLOOD UREA NITROGEN 14 MG/DL (7-18); BUN/CREATININE RATIO 20.3 (6.6-38.0); CALCIUM 8.5 MG/DL (8.5-10.1); CHLORIDE 98 MMOL/L (99-107); CREATININE 0.69 MG/DL (0.40-0.90); GLUCOSE 105 MG/DL (70-104); MAGNESIUM 1.6 MG/DL (1.5-2.4); PHOSPHORUS 2.9 MG/DL (2.3-4.5); POTASSIUM 3.2 MMOL/L (3.5-5.1); SODIUM 140 MMOL/L (135-145); TOTAL CARBON DIOXIDE 29.2 MMOL/L (24-32); TOTAL PROTEIN 5.8 G/DL (6.4-8.2); eGFR 89 ML/MIN
[2018-07-24 08:00] VITALS: BP 145/79
[2018-07-24] MEDS: FLUoxetine 20mg capsule PO SCH ×2 (08:00→08:12)
[2018-07-24] MEDS: lactobacillus rhamnosus 10,000 MMU CELLS/CAPSULE PO SCH ×3 (08:00→20:15)
[2018-07-24] MEDS: lisinopril 20mg tablet PO SCH ×2 (08:00→08:13)
[2018-07-24] MEDS: nicotine 14mg patch - 24hr TD SCH (08:12)
[2018-07-24] MEDS: heparin, porcine 5000 units/ml vial SQ SCH ×2 (08:13→20:15)
[2018-07-24] MEDS: HYDROmorphone 1 mg/ml syringe IV PRN ×2 (08:15→21:26)
[2018-07-24] MEDS: K and/or MAG REPLACEMENT MC SCH (08:23)
[2018-07-24] MEDS ORDERED: potassium Cl 40MEQ/NS 500ml 500 ML IV PRN ×2 (10:30)
[2018-07-24] MEDS ORDERED: magnesium 1gm/100ml D5W IVPB 100 ML IV PRN (10:30)
[2018-07-24] MEDS ORDERED: magnesium 4gm in 100ml NS 100 ML IV PRN (10:30)
[2018-07-24] MEDS ORDERED: potassium Cl 20 mEq SR tablet PO PRN (10:30)
[2018-07-24] MEDS: pantoprazole 40 MG vial IV SCH (10:49)
[2018-07-24 11:00] VITALS: BP 141/75
[2018-07-24 19:30] VITALS: BP 138/82
[2018-07-24] MEDS: temazepam 15mg capsule PO PRN (22:35)
[2018-07-24 23:45] VITALS: BP 127/65
[2018-07-25] MEDS: piperacillin/tazo 3.375gm/50ml 50 ML IV SCH ×4 (02:51→20:34)
[2018-07-25 05:10] LABS: BASOPHILS # (AUTO) 0.1 X10'3 (0-0.2); BASOPHILS % (AUTO) 0.6 % (0-1); EOSINOPHILS # (AUTO) 0.2 X10'3 (0-0.9); EOSINOPHILS % (AUTO) 1.7 % (0-6); HEMATOCRIT 31.3 % (35.0-45.0); HEMOGLOBIN 10.2 g/dl (12.0-16.0); LYMPHOCYTES # (AUTO) 1.6 X10'3 (1.1-4.8); LYMPHOCYTES % (AUTO) 17.1 % (21-51); MEAN CORPUSCULAR HEMOGLOBIN 29.8 PG (27.0-31.0); MEAN CORPUSCULAR HGB CONC 32.5 % (33.0-36.5); MEAN CORPUSCULAR VOLUME 91.9 FL (78-98); MEAN PLATELET VOLUME 7.8 FL (7.4-10.4); MONOCYTES # (AUTO) 0.8 X10'3 (0-0.9); MONOCYTES % (AUTO) 8.5 % (2-12); NEUTROPHILS # (AUTO) 6.6 X10'3 (1.8-7.7); NEUTROPHILS % (AUTO) 72.1 % (42-75); PLATELET COUNT 499 X10'3 (140-440); RED CELL DISTRIBUTION WIDTH 15.2 % (11.5-14.5); WHITE BLOOD COUNT 9.1 X10'3 (4.5-11.0)
[2018-07-25 05:28] LABS: ALANINE AMINOTRANSFERASE 25 U/L (12-78); ALBUMIN 1.8 G/DL (3.4-5.0); ALBUMIN/GLOBULIN RATIO 0.6 (1.1-1.5); ALKALINE PHOSPHATASE 83 IU/L (46-116); ANION GAP 9 (8-16); ASPARTATE AMINO TRANSFERASE 25 U/L (10-37); BILIRUBIN,TOTAL 0.4 MG/DL (0.1-1.0); BLOOD UREA NITROGEN 13 MG/DL (7-18); CALCIUM 8.1 MG/DL (8.5-10.1); CHLORIDE 103 MMOL/L (99-107); CREATININE 0.65 MG/DL (0.40-0.90); GLUCOSE 83 MG/DL (70-104); MAGNESIUM 1.5 MG/DL (1.5-2.4); PHOSPHORUS 2.8 MG/DL (2.3-4.5); POTASSIUM 3.4 MMOL/L (3.5-5.1); SODIUM 143 MMOL/L (135-145); TOTAL CARBON DIOXIDE 30.9 MMOL/L (24-32); eGFR > 90 ML/MIN
[2018-07-25] MEDS: HYDROmorphone 1 mg/ml syringe IV PRN ×3 (05:44→20:41)
[2018-07-25] MEDS: ringers solution, lacted 1,000 ML IV SCH ×2 (05:44→18:35)
[2018-07-25 07:06] VITALS: BP 128/62
[2018-07-25] MEDS: K and/or MAG REPLACEMENT MC SCH (08:00)
[2018-07-25] MEDS: pantoprazole 40 MG vial IV SCH (08:07)
[2018-07-25] MEDS: lisinopril 20mg tablet PO SCH (08:09)
[2018-07-25] MEDS: potassium Cl 20 mEq SR tablet PO PRN ×2 (08:09→16:44)
[2018-07-25] MEDS: lactobacillus rhamnosus 10,000 MMU CELLS/CAPSULE PO SCH ×2 (08:09→20:34)
[2018-07-25] MEDS: FLUoxetine 20mg capsule PO SCH (08:10)
[2018-07-25] MEDS: nicotine 14mg patch - 24hr TD SCH (08:12)
[2018-07-25] MEDS: heparin, porcine 5000 units/ml vial SQ SCH ×2 (08:13→20:35)
[2018-07-25] MEDS: methylnaltrexone br 12mg/0.6ml inj***SubQ only SQ SCH (08:14)
[2018-07-25] MEDS: HYDROcodone/acetaminophen 10/325mg tab PO PRN ×2 (08:25→16:44)
[2018-07-25 11:00] VITALS: BP 127/75
[2018-07-25 19:00] VITALS: BP 141/77
[2018-07-26] VITALS: BP 122/73
[2018-07-26] MEDS: temazepam 15mg capsule PO PRN ×2 (00:29→23:51)
[2018-07-26] MEDS: HYDROcodone/acetaminophen 10/325mg tab PO PRN ×2 (00:29→07:56)
[2018-07-26] MEDS: piperacillin/tazo 3.375gm/50ml 50 ML IV SCH ×3 (02:14→15:08)
[2018-07-26] MEDS: ringers solution, lacted 1,000 ML IV SCH (02:14)
[2018-07-26] MEDS: HYDROmorphone 1 mg/ml syringe IV PRN ×4 (04:03→23:50)
[2018-07-26 05:44] LABS: ALANINE AMINOTRANSFERASE 37 U/L (12-78); ALBUMIN 1.8 G/DL (3.4-5.0); ALBUMIN/GLOBULIN RATIO 0.7 (1.1-1.5); ALKALINE PHOSPHATASE 79 IU/L (46-116); ANION GAP 6 (8-16); ASPARTATE AMINO TRANSFERASE 35 U/L (10-37); BILIRUBIN,TOTAL 0.3 MG/DL (0.1-1.0); BLOOD UREA NITROGEN 8 MG/DL (7-18); BUN/CREATININE RATIO 13.1 (6.6-38.0); CALCIUM 7.8 MG/DL (8.5-10.1); CHLORIDE 104 MMOL/L (99-107); CREATININE 0.61 MG/DL (0.40-0.90); GLUCOSE 113 MG/DL (70-104); MAGNESIUM 1.4 MG/DL (1.5-2.4); PHOSPHORUS 2.9 MG/DL (2.3-4.5); POTASSIUM 3.5 MMOL/L (3.5-5.1); SODIUM 140 MMOL/L (135-145); TOTAL CARBON DIOXIDE 30.2 MMOL/L (24-32); TOTAL PROTEIN 4.5 G/DL (6.4-8.2); eGFR > 90 ML/MIN
[2018-07-26 07:00] VITALS: BP 161/82
[2018-07-26] MEDS: pantoprazole 40 MG vial IV SCH (07:54)
[2018-07-26] MEDS: lisinopril 20mg tablet PO SCH (07:55)
[2018-07-26] MEDS: lactobacillus rhamnosus 10,000 MMU CELLS/CAPSULE PO SCH ×2 (07:56→21:04)
[2018-07-26] MEDS: FLUoxetine 20mg capsule PO SCH (07:56)
[2018-07-26] MEDS: nicotine 14mg patch - 24hr TD SCH (07:56)
[2018-07-26] MEDS: heparin, porcine 5000 units/ml vial SQ SCH ×2 (07:57→21:03)
[2018-07-26 08:00] LABS: BASOPHILS % (AUTO) 0.4 % (0-1); EOSINOPHILS # (AUTO) 0.2 X10'3 (0-0.9); EOSINOPHILS % (AUTO) 1.7 % (0-6); HEMATOCRIT 31.6 % (35.0-45.0); HEMOGLOBIN 10.3 g/dl (12.0-16.0); LYMPHOCYTES # (AUTO) 1.3 X10'3 (1.1-4.8); LYMPHOCYTES % (AUTO) 12.6 % (21-51); MEAN CORPUSCULAR HEMOGLOBIN 29.8 PG (27.0-31.0); MEAN CORPUSCULAR HGB CONC 32.4 % (33.0-36.5); MEAN CORPUSCULAR VOLUME 91.9 FL (78-98); MEAN PLATELET VOLUME 7.8 FL (7.4-10.4); MONOCYTES # (AUTO) 0.8 X10'3 (0-0.9); MONOCYTES % (AUTO) 7.8 % (2-12); NEUTROPHILS # (AUTO) 8.2 X10'3 (1.8-7.7); NEUTROPHILS % (AUTO) 77.5 % (42-75); PLATELET COUNT 471 X10'3 (140-440); RED BLOOD COUNT 3.44 X10'6 (4.20-5.60); WHITE BLOOD COUNT 10.6 X10'3 (4.5-11.0)
[2018-07-26] MEDS: K and/or MAG REPLACEMENT MC SCH (08:00)
[2018-07-26] MEDS: magnesium Cl slow-release 64mg tablet PO PRN ×2 (08:12→17:55)
[2018-07-26 11:00] VITALS: BP 148/70
[2018-07-26 20:00] VITALS: BP 159/79
[2018-07-27] VITALS: BP 152/94
[2018-07-27 06:13] LABS: ALANINE AMINOTRANSFERASE 46 U/L (12-78); ALBUMIN 1.9 G/DL (3.4-5.0); ALBUMIN/GLOBULIN RATIO 0.6 (1.1-1.5); ALKALINE PHOSPHATASE 87 IU/L (46-116); ANION GAP 7 (8-16); ASPARTATE AMINO TRANSFERASE 37 U/L (10-37); BILIRUBIN,TOTAL 0.3 MG/DL (0.1-1.0); BLOOD UREA NITROGEN 4 MG/DL (7-18); BUN/CREATININE RATIO 6.3 (6.6-38.0); CALCIUM 7.9 MG/DL (8.5-10.1); CHLORIDE 104 MMOL/L (99-107); CREATININE 0.63 MG/DL (0.40-0.90); GLUCOSE 103 MG/DL (70-104); MAGNESIUM 1.6 MG/DL (1.5-2.4); PHOSPHORUS 3.6 MG/DL (2.3-4.5); POTASSIUM 3.5 MMOL/L (3.5-5.1); SODIUM 141 MMOL/L (135-145); TOTAL CARBON DIOXIDE 29.6 MMOL/L (24-32); TOTAL PROTEIN 5.1 G/DL (6.4-8.2); eGFR > 90 ML/MIN
[2018-07-27 07:34] LABS: BASOPHILS # (AUTO) 0.2 X10'3 (0-0.2); BASOPHILS % (AUTO) 1.4 % (0-1); EOSINOPHILS # (AUTO) 0.2 X10'3 (0-0.9); EOSINOPHILS % (AUTO) 1.8 % (0-6); HEMATOCRIT 35.1 % (35.0-45.0); HEMOGLOBIN 11.4 g/dl (12.0-16.0); LYMPHOCYTES # (AUTO) 1.2 X10'3 (1.1-4.8); LYMPHOCYTES % (AUTO) 10.5 % (21-51); MEAN CORPUSCULAR HEMOGLOBIN 29.7 PG (27.0-31.0); MEAN CORPUSCULAR HGB CONC 32.6 % (33.0-36.5); MEAN CORPUSCULAR VOLUME 91.2 FL (78-98); MEAN PLATELET VOLUME 7.3 FL (7.4-10.4); MONOCYTES # (AUTO) 0.6 X10'3 (0-0.9); MONOCYTES % (AUTO) 5.4 % (2-12); NEUTROPHILS # (AUTO) 9.4 X10'3 (1.8-7.7); NEUTROPHILS % (AUTO) 80.9 % (42-75); PLATELET COUNT 570 X10'3 (140-440); RED BLOOD COUNT 3.85 X10'6 (4.20-5.60); RED CELL DISTRIBUTION WIDTH 15.9 % (11.5-14.5); WHITE BLOOD COUNT 11.6 X10'3 (4.5-11.0)
[2018-07-27 07:40] VITALS: BP 149/86
[2018-07-27] MEDS: K and/or MAG REPLACEMENT MC SCH (08:00)
[2018-07-27] MEDS: nicotine 14mg patch - 24hr TD SCH (08:27)
[2018-07-27] MEDS: lactobacillus rhamnosus 10,000 MMU CELLS/CAPSULE PO SCH ×2 (08:27→20:25)
[2018-07-27] MEDS: FLUoxetine 20mg capsule PO SCH (08:27)
[2018-07-27] MEDS: lisinopril 20mg tablet PO SCH (08:27)
[2018-07-27] MEDS: heparin, porcine 5000 units/ml vial SQ SCH ×2 (08:28→20:25)
[2018-07-27] MEDS: methylnaltrexone br 12mg/0.6ml inj***SubQ only SQ SCH (08:29)
[2018-07-27] MEDS: HYDROmorphone 1 mg/ml syringe IV PRN ×3 (09:05→23:39)
[2018-07-27] MEDS ORDERED: mag hydrox/Alum hydrox/simeth 30ml oral suspension PO PRN (09:25)
[2018-07-27] MEDS: pantoprazole 40 MG vial IV SCH (10:00)
[2018-07-27] MEDS: piperacillin/tazo 3.375gm/50ml 50 ML IV SCH ×4 (10:37→23:39)
[2018-07-27] MEDS ORDERED: iohexol 300mg/ml 100ml inj. ONE (11:18)
[2018-07-27 11:50] VITALS: BP 149/78
[2018-07-27 15:10] VITALS: BP 154/80
[2018-07-27 20:00] VITALS: BP 159/80
[2018-07-27] MEDS: HYDROcodone/acetaminophen 5mg/325mg tablet PO PRN (20:28)
[2018-07-27 23:30] VITALS: BP 149/80
[2018-07-27] MEDS: temazepam 15mg capsule PO PRN (23:39)
[2018-07-28 05:34] LABS: BASOPHILS % (AUTO) 0.4 % (0-1); EOSINOPHILS # (AUTO) 0.2 X10'3 (0-0.9); EOSINOPHILS % (AUTO) 1.7 % (0-6); HEMATOCRIT 32.2 % (35.0-45.0); HEMOGLOBIN 10.3 g/dl (12.0-16.0); LYMPHOCYTES # (AUTO) 1.7 X10'3 (1.1-4.8); LYMPHOCYTES % (AUTO) 15.3 % (21-51); MEAN CORPUSCULAR HEMOGLOBIN 29.4 PG (27.0-31.0); MEAN CORPUSCULAR VOLUME 92.1 FL (78-98); MEAN PLATELET VOLUME 7.7 FL (7.4-10.4); MONOCYTES # (AUTO) 0.6 X10'3 (0-0.9); MONOCYTES % (AUTO) 5.5 % (2-12); NEUTROPHILS # (AUTO) 8.7 X10'3 (1.8-7.7); NEUTROPHILS % (AUTO) 77.1 % (42-75); PLATELET COUNT 534 X10'3 (140-440); RED CELL DISTRIBUTION WIDTH 16.6 % (11.5-14.5); WHITE BLOOD COUNT 11.3 X10'3 (4.5-11.0)
[2018-07-28 05:53] LABS: ALANINE AMINOTRANSFERASE 37 U/L (12-78); ALBUMIN 1.8 G/DL (3.4-5.0); ALBUMIN/GLOBULIN RATIO 0.6 (1.1-1.5); ALKALINE PHOSPHATASE 83 IU/L (46-116); ANION GAP 4 (8-16); ASPARTATE AMINO TRANSFERASE 22 U/L (10-37); BILIRUBIN,TOTAL 0.2 MG/DL (0.1-1.0); BLOOD UREA NITROGEN 5 MG/DL (7-18); BUN/CREATININE RATIO 7.7 (6.6-38.0); CALCIUM 7.7 MG/DL (8.5-10.1); CHLORIDE 105 MMOL/L (99-107); CREATININE 0.65 MG/DL (0.40-0.90); GLUCOSE 131 MG/DL (70-104); MAGNESIUM 1.6 MG/DL (1.5-2.4); PHOSPHORUS 3.5 MG/DL (2.3-4.5); SODIUM 141 MMOL/L (135-145); TOTAL CARBON DIOXIDE 31.6 MMOL/L (24-32); eGFR > 90 ML/MIN
[2018-07-28 07:30] VITALS: BP 127/86
[2018-07-28] MEDS ORDERED: pantoprazole 40mg Tablet.DR PO SCH (07:30)
[2018-07-28] MEDS: K and/or MAG REPLACEMENT MC SCH (08:00)
[2018-07-28] MEDS: lactobacillus rhamnosus 10,000 MMU CELLS/CAPSULE PO SCH (08:38)
[2018-07-28] MEDS: heparin, porcine 5000 units/ml vial SQ SCH (08:38)
[2018-07-28] MEDS: nicotine 14mg patch - 24hr TD SCH (08:39)
[2018-07-28] MEDS: FLUoxetine 20mg capsule PO SCH (08:39)
[2018-07-28] MEDS: piperacillin/tazo 3.375gm/50ml 50 ML IV SCH ×2 (08:39→17:00)
[2018-07-28] MEDS ORDERED: potassium Cl 20 mEq SR tablet PO PRN (08:50)
[2018-07-28] MEDS ORDERED: potassium Cl 40MEQ/NS 500ml 500 ML IV PRN ×2 (08:50)
[2018-07-28] MEDS: lisinopril 20mg tablet PO SCH (08:51)
[2018-07-28] MEDS: HYDROmorphone 1 mg/ml syringe IV PRN ×2 (08:54→15:45)
[2018-07-28] MEDS: potassium Cl 20 mEq SR tablet PO PRN ×2 (09:29→15:45)
[2018-07-28 12:13] VITALS: BP 120/67
[2018-07-28] MEDS ORDERED: NICO-631 TD (12:56)
[2018-07-28] MEDS ORDERED: AMOX-580 PO (12:56)
[2018-07-28] MEDS ORDERED: TEMA15CA PO (12:56)
[2018-07-28] MEDS ORDERED: HYDR-3972 PO (12:56)
[2018-07-28 19:31] VITALS: BP 130/59
== END 2018-07-28 19:55 | disposition home or self-care (01) | DRG 230 ==
LOC: ER 06:54 → ED HOLD 07:33 → EDBEDREQ 09:12 → SUR 3N 10:52 → ICU 2S 07-19 17:12 → SUR 3N 07-21 23:25
PROVIDERS: ADMIT Family Medicine; ATTEND Family Medicine
PROC: 0DJD8ZZ Inspection of Lower Intestinal Tract, Via Natural or Artificial Opening Endoscopic (ICD-10-PCS; 2018-07-18)
PROC: 0DNW0ZZ Release Peritoneum, Open Approach (ICD-10-PCS; 2018-07-19)
PROC: 0D1B0Z4 Bypass Ileum to Cutaneous, Open Approach (ICD-10-PCS; principal; 2018-07-19 13:51)
DX: K56.690 Other partial intestinal obstruction (principal); N17.0 Acute kidney failure with tubular necrosis; E43 Unspecified severe protein-calorie malnutrition; Z68.41 Body mass index [BMI] 40.0-44.9, adult; K56.7 Ileus, unspecified; I10 Essential (primary) hypertension; R34 Anuria and oliguria; R00.0 Tachycardia, unspecified; K57.30 Diverticulosis of large intestine without perforation or abscess without bleeding; F32.9 Major depressive disorder, single episode, unspecified; K66.0 Peritoneal adhesions (postprocedural) (postinfection); F17.200 Nicotine dependence, unspecified, uncomplicated; E66.9 Obesity, unspecified; D64.9 Anemia, unspecified; E87.6 Hypokalemia; Z82.49 Family history of ischemic heart disease and other diseases of the circulatory system; Z90.49 Acquired absence of other specified parts of digestive tract; Z71.6 Tobacco abuse counseling
CPT/HCPCS: 36415; 45330; 71045; 74177; 76775; 80048; 80053; 81001; 82570; 83605; 83735; 84100; 84300; 85025; 85027; 85610; 85730; 87040; 87070; 87207; 93005; 97116; 97161; 97530; 99152; 99285; A4421; A4620; A6253; A6446; A6449; A7000; C1758; C9113; G0378; J0694; J1170; J1644; J2175; J2250; J2270; J2405; J2543; J2704; J2710; J2765; J3010; J3480; J3490; J7030; J7120; Q2037; Q9967

== ENCOUNTER 2018-08-18 07:39 | Outpatient (CLI) | payer MEDICAID ==
[~2018-08-18 07:39] MED LIST: AMOX-580 PO; FLUO20CA39 PO; HYDR-3972 PO; LISI-600 PO; NICO-631 TD; TEMA15CA PO
[2018-08-18] MEDS ORDERED: diatrozoate meglu/diatrozoate sod (37% iodine) 120ML oral solution ONE ×2 (09:32)
== END 2018-08-18 23:59 | disposition home or self-care (01) ==
LOC: RAD 07:39 → EDSTATUS 09:00 → RAD 23:59
PROVIDERS: ATTEND Surgery
DX: K56.699 Other intestinal obstruction unspecified as to partial versus complete obstruction (principal); I10 Essential (primary) hypertension; Z87.891 Personal history of nicotine dependence
CPT/HCPCS: 74270; Q9963

== ENCOUNTER 2018-09-30 05:07 | Inpatient (IN) | payer MEDICAID ==
[~2018-09-30] VITALS: Ht 162.6 cm; Wt 97.7 kg
[2018-09-30] VITALS (24 sets, daily range): BP systolic 101–135; BP diastolic 54–88
[~2018-09-30 05:07] MED LIST changes: -AMOX-580 PO; -FLUO20CA39 PO; +FLUO40CA PO; -HYDR-3972 PO; -LISI-600 PO; +LISI1TAB11 PO; -NICO-631 TD; -TEMA15CA PO; +ZOLP5TAB8 PO; +ringers solution, lacted 1,000 ML IV SCH
[2018-09-30] MEDS ORDERED: ceFOXitin 2 GM ADDvantage bag 100 ML IV ONE (05:30)
[2018-09-30] MEDS ORDERED: famotidine 20mg tablet PO ONE (05:30)
[2018-09-30] MEDS ORDERED: ceFOXitin 2 GM ADDVANTGE BAG 50 ML IV ONE (05:30)
[2018-09-30] MEDS ORDERED: albuterol 2.5 MG/3 ML nebule NEB ONE (05:30)
[2018-09-30] MEDS ORDERED: fentaNYL/PF 50MCG/1 ML 2ML syringe ONE (06:46)
[2018-09-30] MEDS ORDERED: MIDAZolam 5mg/5ml vial ONE (06:46)
[2018-09-30 07:05] LABS: BASOPHILS % (AUTO) 0.6 % (0-1); EOSINOPHILS # (AUTO) 0.1 X10'3 (0-0.9); EOSINOPHILS % (AUTO) 0.9 % (0-6); LYMPHOCYTES # (AUTO) 1.5 X10'3 (1.1-4.8); MEAN CORPUSCULAR HEMOGLOBIN 28.6 PG (27.0-31.0); MEAN CORPUSCULAR HGB CONC 32.8 % (33.0-36.5); MEAN CORPUSCULAR VOLUME 87.1 FL (78-98); MEAN PLATELET VOLUME 8.6 FL (7.4-10.4); MONOCYTES # (AUTO) 0.4 X10'3 (0-0.9); MONOCYTES % (AUTO) 6.7 % (2-12); NEUTROPHILS # (AUTO) 4.7 X10'3 (1.8-7.7); NEUTROPHILS % (AUTO) 68.8 % (42-75); PRE OP HEMATOCRIT 42.1 % (35.0-45.0); PRE OP HEMOGLOBIN 13.8 g/dL (12.0-16.0); PRE OP PLATELET COUNT 332 X10'3 (140-440); RED BLOOD COUNT 4.83 X10'6 (4.20-5.60); RED CELL DISTRIBUTION WIDTH 14.1 % (11.5-14.5)
[2018-09-30 07:08] LABS: ALBUMIN 3.7 G/DL (3.4-5.0); ALBUMIN/GLOBULIN RATIO 0.9 (1.1-1.5); ALKALINE PHOSPHATASE 130 IU/L (46-116); BLOOD UREA NITROGEN 18 MG/DL (7-18); BUN/CREATININE RATIO 15.9 (6.6-38.0); CALCIUM 9.4 MG/DL (8.5-10.1); CHLORIDE 98 MMOL/L (99-107); CREATININE 1.13 MG/DL (0.40-0.90); PRE OP ALT 41 U/L (30-65); PRE OP ANION GAP 12 (8-16); PRE OP AST 29 U/L (10-37); PRE OP BILIRUB, TOTAL 1.1 MG/DL (0.0-1.0); PRE OP GLUCOSE 123 MG/DL (70-104); PRE OP POTASSIUM 3.5 MMOL/L (3.4-5.1); PRE OP SODIUM 135 MMOL/L (135-145); TOTAL CARBON DIOXIDE 24.9 MMOL/L (24-32); TOTAL PROTEIN 7.6 G/DL (6.4-8.2); eGFR 50 ML/MIN
[2018-09-30] MEDS ORDERED: BUPIVAcaine/PF 2.5mg/ml (0.25%) 10ml vial ONE (07:35)
[2018-09-30] MEDS: ceFAZolin 1000mg inj ONE ×2 (08:40→12:15)
[2018-09-30] MEDS ORDERED: CADD PCA waste documentation MC PRN (10:30)
[2018-09-30] MEDS ORDERED: ondansetron/PF 4mg/2ml inj IV PRN ×2 (10:30→11:25)
[2018-09-30] MEDS ORDERED: naloxone 0.4 mg/ml inj IV PRN (10:30)
[2018-09-30] MEDS ORDERED: sevoflurane 250ml liquid IH ONE (10:36)
[2018-09-30] MEDS ORDERED: midazolam 2 mg/2 ml injection ONE (10:37)
[2018-09-30] MEDS ORDERED: rocuronium 10mg/ml inj IV ONE (10:37)
[2018-09-30] MEDS ORDERED: fentaNYL /PF 50mcg/ml 5ml ampule ONE (10:37)
[2018-09-30] MEDS ORDERED: propofol inj 20 ML IV ONE (10:38)
[2018-09-30] MEDS ORDERED: ePHEDrine 50MG/ML INJ. ONE (11:07)
[2018-09-30] MEDS ORDERED: ringers solution, lacted 1,000 ML IV SCH (11:21)
[2018-09-30] MEDS ORDERED: proCHLORperazine 10 MG/2 ml inj IV PRN (11:25)
[2018-09-30] MEDS ORDERED: morphine 4 MG/ML inj SYRINge IV PRN ×2 (11:25)
[2018-09-30] MEDS ORDERED: meperidine/PF 25mg/ml syringe IV PRN ×3 (11:25)
[2018-09-30] MEDS ORDERED: neostigmine methylsulfate 1 MG/ML 10ml vial ONE (11:54)
[2018-09-30] MEDS ORDERED: bacitracin 15gm ointment TP ONE (11:54)
[2018-09-30] MEDS ORDERED: glycopyrrolate 0.2mg/ml inj ONE (11:55)
--- NOTE | 2018-09-30 12:11 | NUR ---
Received from OR via BED, accompanied by Anesthesiologist DR ALVARES and report given by Anesthesiolgist. PT DROWSY, DENIES PAIN, VSS. PT W/MIDLINE INCISION W/ISLAND DRSG COVERING CDI, ALSO RIGHT ABDOMINAL INCISION W/ISLAND DRSG COVERING INCISION W/KERLEX GAUZE PACKING. Addendum: 09/30/18 at 1235 by Olesya Davalos RN Amended: Links added.
[2018-09-30] MEDS: HYDROmorphone/NS 1 mg/ml CADD 50 ML IV SCH ×7 (13:00→23:00)
--- NOTE | 2018-09-30 13:41 | NUR ---
Report called to receiving nurse. Transferred via BED, 1 LARGE PURPLE DUFFLE BAG, 1 BLACK DUFFLE BAG, 1 HOSPITAL BAG OF CLOTHING, CELL PHONE SENT W/PT TO ROOM 357A, BLL, SIDE RAILS UP X 2, CALL LIGHT GIVEN TO PT, NURSES AIDE IN ROOM HOOKING PT TO VS MACHINE, PT COMFORTABLE. Special Issues communicated to receiving nurse. YES. Addendum: 09/30/18 at 1350 by Olesya Davalos RN Amended: Links added.
--- NOTE | 2018-09-30 14:30 | NUR ---
Patient in room [facility]. I have received report from emmie FULLER and had the opportunity to ask questions and assume patient care.
[2018-09-30] MEDS: Potassium Cl inj 20 MEQ in ringers solution, lacted 1,000 ML IV SCH ×2 (15:06→20:41)
[2018-09-30] MEDS ORDERED: ceFOXitin 1 GM ADDVANTAGE BAG 1,000 GM in normal saline 100ml IV soln 100 ML IV SCH (16:00)
[2018-09-30] MEDS: ceFOXitin 1 GM ADDVANTAGE BAG 50 ML IV SCH (16:52)
--- NOTE | 2018-09-30 18:10 | NUR ---
Received report from ALINA Forbes. Patient is awake and alert on room air, in no apparent distress. On Dilaudid CADD for post-op pain. Call light and items of frequent use within reach. Will continue to monitor.
--- NOTE | 2018-09-30 18:43 | NUR ---
patient very sleepy post op. reports pain 6/10 on dilaudid cadd. Midline sites CDI. Patient encouraged to void placed on bed worrell. states she feels she will void soon. will continue to monitor.VSS
--- NOTE | 2018-09-30 18:44 | NUR ---
Problems reprioritized. Patient report given, questions answered & plan of care reviewed with Juliana FULLER.
[2018-09-30] MEDS: HYDROchlorothiazide 12.5mg capsule PO SCH (20:38)
[2018-09-30] MEDS: FLUoxetine 20mg capsule PO SCH (20:38)
[2018-09-30] MEDS: lisinopril 20mg tablet PO SCH (20:39)
[2018-09-30 21:10] LABS: CLARITY,URINE SLIGHTLY CLOUDY (Clear); COLOR,URINE YELLOW (Yellow); GLUCOSE, URINE NEGATIVE (Neg); KETONES,URINE TRACE mg/dl (Neg); LEUKOCYTE ESTERASE ,URINE NEGATIVE (Neg); NITRITES, URINE NEGATIVE (Neg); OCCULT BLOOD,URINE TRACE-INTACT (Neg); PROTEIN,URINE NEGATIVE (Neg); UROBILINOGEN,URINE 0.2 E.U/dL (0.2-1.0)
[2018-09-30 21:15] LABS: MUCUS STRANDS MODERATE /LPF (Neg); SQUAMOUS EPITHELIAL CELL,UR MANY /LPF (FEW)
[2018-09-30 21:16] LABS: BACTERIA,URINE 2+ /HPF (Neg); RBC,URINE 0-2 /HPF (0-2)
[2018-09-30 21:20] LABS: UA COLLECTION TYPE CLN CATCH MIDSTREAM
[2018-10-01] MEDS: ceFOXitin 1 GM ADDVANTAGE BAG 50 ML IV SCH (00:27)
[2018-10-01] MEDS: Potassium Cl inj 20 MEQ in ringers solution, lacted 1,000 ML IV SCH ×3 (00:27→19:01)
[2018-10-01] MEDS: zolpidem 5mg tablet PO PRN ×2 (00:31→20:36)
[2018-10-01] MEDS: HYDROmorphone/NS 1 mg/ml CADD 50 ML IV SCH ×12 (01:10→23:00)
[2018-10-01 06:00] LABS: BASOPHILS # (AUTO) 0.1 X10'3 (0-0.2); BASOPHILS % (AUTO) 1.1 % (0-1); EOSINOPHILS # (AUTO) 0.1 X10'3 (0-0.9); EOSINOPHILS % (AUTO) 1.3 % (0-6); HEMATOCRIT 37.1 % (35.0-45.0); HEMOGLOBIN 12.3 g/dl (12.0-16.0); LYMPHOCYTES % (AUTO) 15.8 % (21-51); MEAN CORPUSCULAR HEMOGLOBIN 28.8 PG (27.0-31.0); MEAN CORPUSCULAR VOLUME 87.1 FL (78-98); MEAN PLATELET VOLUME 9.2 FL (7.4-10.4); MONOCYTES # (AUTO) 0.5 X10'3 (0-0.9); NEUTROPHILS # (AUTO) 4.7 X10'3 (1.8-7.7); NEUTROPHILS % (AUTO) 73.8 % (42-75); PLATELET COUNT 166 X10'3 (140-440); RED BLOOD COUNT 4.27 X10'6 (4.20-5.60); RED CELL DISTRIBUTION WIDTH 15.1 % (11.5-14.5); WHITE BLOOD COUNT 6.4 X10'3 (4.5-11.0)
--- NOTE | 2018-10-01 06:15 | NUR ---
Problems reprioritized. Patient report given, questions answered & plan of care reviewed with ALINA Hough.
--- NOTE | 2018-10-01 06:49 | NUR ---
Patient in room [facility]. I have received report from ALINA HOOD and had the opportunity to ask questions and assume patient care.
[2018-10-01 08:00] VITALS: BP 86/45
[2018-10-01 09:22] VITALS: BP 96/47
[2018-10-01 11:00] VITALS: BP 89/40
--- NOTE | 2018-10-01 11:28 | NUR ---
patient BP 89/40, 88/41 HR 89. c/o "drowsiness and dizziness." Dr. Flores notified and ordered for CBC and 500ML NS bolus IV once.
[2018-10-01] MEDS ORDERED: normal saline 500ml IV soln 500 ML IV ONE ×2 (11:30→13:45)
[2018-10-01 12:11] LABS: BASOPHILS % (AUTO) 0.5 % (0-1); EOSINOPHILS # (AUTO) 0.1 X10'3 (0-0.9); HEMATOCRIT 34.1 % (35.0-45.0); HEMOGLOBIN 11.2 g/dl (12.0-16.0); LYMPHOCYTES % (AUTO) 16.4 % (21-51); MEAN CORPUSCULAR HGB CONC 32.9 % (33.0-36.5); MEAN CORPUSCULAR VOLUME 88.3 FL (78-98); MEAN PLATELET VOLUME 8.4 FL (7.4-10.4); MONOCYTES # (AUTO) 0.6 X10'3 (0-0.9); NEUTROPHILS # (AUTO) 4.5 X10'3 (1.8-7.7); NEUTROPHILS % (AUTO) 72.1 % (42-75); PLATELET COUNT 237 X10'3 (140-440); RED BLOOD COUNT 3.86 X10'6 (4.20-5.60); RED CELL DISTRIBUTION WIDTH 13.9 % (11.5-14.5); WHITE BLOOD COUNT 6.2 X10'3 (4.5-11.0)
[2018-10-01 13:37] VITALS: BP 90/40
--- NOTE | 2018-10-01 13:38 | NUR ---
Patient received 500ML Normal saline bolus as ordered. Current BP is 90/40. No compliants. Dr. Flores notified. Another 500ml of normal saline bolus IV ordered.
--- NOTE | 2018-10-01 15:01 | NUR ---
Patient received 500ML normal saline as ordered. bp now 81/[address] Flores was called but no answer. Left message for Dr. Flores to call back. Patient resting with eyes closed, resp. even and unlabored with no complaints. Will continue to monitor.
--- NOTE | 2018-10-01 16:08 | NUR ---
Dr. Flores called again regarding patient's BP which is now 85/41 HR 51. No new orders from Dr. Flores. Patient is up and ambulating.
[2018-10-01 18:00] VITALS: BP 83/42
[2018-10-01 18:09] LABS: CLARITY,URINE SLIGHTLY CLOUDY (Clear); COLOR,URINE YELLOW (Yellow); GLUCOSE, URINE NEGATIVE (Neg); KETONES,URINE NEGATIVE (Neg); LEUKOCYTE ESTERASE ,URINE SMALL (Neg); NITRITES, URINE NEGATIVE (Neg); OCCULT BLOOD,URINE TRACE-LYSED (Neg); PROTEIN,URINE NEGATIVE (Neg); UROBILINOGEN,URINE 0.2 E.U/dL (0.2-1.0)
[2018-10-01 18:16] LABS: SQUAMOUS EPITHELIAL CELL,UR MANY /LPF (FEW); UA COLLECTION TYPE NON-SPECIFIED
[2018-10-01 18:17] LABS: BACTERIA,URINE FEW /HPF (Neg); HYALINE CASTS 0-3 /LPF (NEGATIVE); MUCUS STRANDS FEW /LPF (Neg); RBC,URINE 0-2 /HPF (0-2)
--- NOTE | 2018-10-01 18:22 | NUR ---
Received report from ALINA Hough with ALINA Herrera. Patient is awake and alert on room air, in no apparent distress. Call light and items of frequent use within reach. Will continue to monitor.
--- NOTE | 2018-10-01 18:32 | NUR ---
Problems reprioritized. Patient report given, questions answered & plan of care reviewed with ALINA Andrews.
--- NOTE | 2018-10-01 20:06 | NUR ---
Spoke to Dr. Flores regarding patient's BP of 82/48. stated that "check CBC in the AM for any internal bleeding. Make sure someone walks with patient when she gets up. Thanks"
[2018-10-01] MEDS: FLUoxetine 20mg capsule PO SCH (20:36)
[2018-10-01] MEDS: HYDROchlorothiazide 12.5mg capsule PO SCH (20:41)
[2018-10-01] MEDS: lisinopril 20mg tablet PO SCH (20:41)
[2018-10-02] VITALS: BP 96/44
[2018-10-02] MEDS: HYDROmorphone/NS 1 mg/ml CADD 50 ML IV SCH ×12 (01:00→22:59)
[2018-10-02] MEDS: Potassium Cl inj 20 MEQ in ringers solution, lacted 1,000 ML IV SCH ×3 (02:49→19:16)
--- NOTE | 2018-10-02 06:12 | NUR ---
Patient resting comfortably. Problems reprioritized. Patient report given, questions answered & plan of care reviewed with ALINA Hough with ALINA Herrera.
[2018-10-02 06:17] LABS: BASOPHILS % (AUTO) 0.4 % (0-1); EOSINOPHILS # (AUTO) 0.1 X10'3 (0-0.9); HEMATOCRIT 32.9 % (35.0-45.0); HEMOGLOBIN 10.6 g/dl (12.0-16.0); LYMPHOCYTES # (AUTO) 1.4 X10'3 (1.1-4.8); LYMPHOCYTES % (AUTO) 21.7 % (21-51); MEAN CORPUSCULAR HEMOGLOBIN 28.6 PG (27.0-31.0); MEAN CORPUSCULAR HGB CONC 32.1 % (33.0-36.5); MEAN CORPUSCULAR VOLUME 89.1 FL (78-98); MEAN PLATELET VOLUME 8.9 FL (7.4-10.4); MONOCYTES # (AUTO) 0.8 X10'3 (0-0.9); MONOCYTES % (AUTO) 12.4 % (2-12); NEUTROPHILS # (AUTO) 4.1 X10'3 (1.8-7.7); NEUTROPHILS % (AUTO) 64.5 % (42-75); PLATELET COUNT 221 X10'3 (140-440); RED BLOOD COUNT 3.69 X10'6 (4.20-5.60); RED CELL DISTRIBUTION WIDTH 14.2 % (11.5-14.5); WHITE BLOOD COUNT 6.4 X10'3 (4.5-11.0)
[2018-10-02 08:16] VITALS: BP 86/41
[2018-10-02 11:00] VITALS: BP 94/51
[2018-10-02] MEDS ORDERED: NUT.TX.IMPAIRED DIGEST FXN (Ensure Clear) 237 ML PO SCH (13:00)
--- NOTE | 2018-10-02 16:53 | NUR ---
Patient is s/p ileostomy takedown. Met at bedside and given written post ileostomy takedown education handout with verbal review. Addendum: 10/02/18 at [address] Amended: Links added.
[2018-10-02 18:00] VITALS: BP 97/45
--- NOTE | 2018-10-02 18:29 | NUR ---
Problems reprioritized. Patient report given, questions answered & plan of care reviewed with ALINA NICHOLAS.
--- NOTE | 2018-10-02 18:30 | NUR ---
Patient in room [facility]. I have received report from Gianluca FULLER and had the opportunity to ask questions and assume patient care.
[2018-10-02] MEDS: HYDROchlorothiazide 12.5mg capsule PO SCH (21:00)
[2018-10-02] MEDS: lisinopril 20mg tablet PO SCH (21:00)
[2018-10-02] MEDS: FLUoxetine 20mg capsule PO SCH (21:20)
[2018-10-02] MEDS: zolpidem 5mg tablet PO PRN (21:24)
[2018-10-03] VITALS: BP 100/54
[2018-10-03] MEDS: HYDROmorphone/NS 1 mg/ml CADD 50 ML IV SCH ×5 (01:00→09:00)
--- NOTE | 2018-10-03 06:20 | NUR ---
Patient in room [facility]. I have received report from ALINA Andrews and had the opportunity to ask questions and assume patient care.
[2018-10-03 06:30] VITALS: BP 96/57
--- NOTE | 2018-10-03 06:36 | NUR ---
Problems reprioritized. Patient report given, questions answered & plan of care reviewed with Michaela Rn.
[2018-10-03 07:14] LABS: BASOPHILS % (AUTO) 0.4 % (0-1); EOSINOPHILS # (AUTO) 0.1 X10'3 (0-0.9); EOSINOPHILS % (AUTO) 2.1 % (0-6); HEMATOCRIT 37.1 % (35.0-45.0); LYMPHOCYTES # (AUTO) 1.2 X10'3 (1.1-4.8); LYMPHOCYTES % (AUTO) 21.5 % (21-51); MEAN CORPUSCULAR HEMOGLOBIN 28.9 PG (27.0-31.0); MEAN CORPUSCULAR HGB CONC 32.3 % (33.0-36.5); MEAN CORPUSCULAR VOLUME 89.4 FL (78-98); MEAN PLATELET VOLUME 9.5 FL (7.4-10.4); MONOCYTES # (AUTO) 0.5 X10'3 (0-0.9); MONOCYTES % (AUTO) 8.4 % (2-12); NEUTROPHILS # (AUTO) 3.7 X10'3 (1.8-7.7); NEUTROPHILS % (AUTO) 67.6 % (42-75); PLATELET COUNT 237 X10'3 (140-440); RED BLOOD COUNT 4.15 X10'6 (4.20-5.60); RED CELL DISTRIBUTION WIDTH 14.8 % (11.5-14.5); WHITE BLOOD COUNT 5.4 X10'3 (4.5-11.0)
[2018-10-03 11:00] VITALS: BP 86/47
--- NOTE | 2018-10-03 11:03 | NUR ---
Pt w/ low BP, asymptomatic. Pt has been having low BP's. MD aware. No orders received.
[2018-10-03] MEDS: oxyCODONE/APAP 10/325mg tablet PO PRN ×3 (13:38→23:30)
[2018-10-03] MEDS: Potassium Cl inj 20 MEQ in ringers solution, lacted 1,000 ML IV SCH ×2 (14:44→16:48)
--- NOTE | 2018-10-03 18:54 | NUR ---
Problems reprioritized. Patient report given, questions answered & plan of care reviewed with ALINA Cruz.
[2018-10-03] MEDS: HYDROchlorothiazide 12.5mg capsule PO SCH (21:00)
[2018-10-03] MEDS: lisinopril 20mg tablet PO SCH (21:00)
--- NOTE | 2018-10-03 21:00 | NUR ---
Patient states dressing change to right lateral abdomen was completed at 1700. Refusing dressing change at this time. Will attempt to change in AM during lab rounds.
[2018-10-03] MEDS: zolpidem 5mg tablet PO PRN (21:14)
[2018-10-03] MEDS: FLUoxetine 20mg capsule PO SCH (21:15)
--- NOTE | 2018-10-04 06:20 | NUR ---
Patient in room [facility]. I have received report from ALINA Cruz and had the opportunity to ask questions and assume patient care.
--- NOTE | 2018-10-04 06:29 | NUR ---
Problems reprioritized. Patient report given, questions answered & plan of care reviewed with ALINA Jennings.
[2018-10-04 06:30] VITALS: BP 106/62
[2018-10-04 07:28] LABS: BASOPHILS % (AUTO) 0.5 % (0-1); EOSINOPHILS # (AUTO) 0.1 X10'3 (0-0.9); EOSINOPHILS % (AUTO) 2.8 % (0-6); HEMATOCRIT 32.7 % (35.0-45.0); HEMOGLOBIN 10.6 g/dl (12.0-16.0); LYMPHOCYTES # (AUTO) 1.5 X10'3 (1.1-4.8); LYMPHOCYTES % (AUTO) 29.2 % (21-51); MEAN CORPUSCULAR HEMOGLOBIN 28.7 PG (27.0-31.0); MEAN CORPUSCULAR HGB CONC 32.4 % (33.0-36.5); MEAN CORPUSCULAR VOLUME 88.6 FL (78-98); MEAN PLATELET VOLUME 9.2 FL (7.4-10.4); MONOCYTES # (AUTO) 0.4 X10'3 (0-0.9); MONOCYTES % (AUTO) 7.9 % (2-12); NEUTROPHILS # (AUTO) 3.1 X10'3 (1.8-7.7); NEUTROPHILS % (AUTO) 59.6 % (42-75); PLATELET COUNT 241 X10'3 (140-440); RED CELL DISTRIBUTION WIDTH 14.9 % (11.5-14.5); WHITE BLOOD COUNT 5.2 X10'3 (4.5-11.0)
[2018-10-04] MEDS ORDERED: OXYC-145 PO (09:40)
[2018-10-04 11:00] VITALS: BP 103/59
[2018-10-04] MEDS: oxyCODONE/APAP 10/325mg tablet PO PRN (12:52)
--- NOTE | 2018-10-04 13:00 | NUR ---
DC inst provided to pt. IV DC'd, tip intact. All belongings sent w/pt. WC to front lobby.
== END 2018-10-04 13:00 | disposition home or self-care (01) | DRG 230 ==
LOC: PAS 05:07 → EDSTATUS 09:30 → SUR 3N 13:45
PROVIDERS: ADMIT Surgery; ATTEND Surgery
PROC: 0DQB0ZZ Repair Ileum, Open Approach (ICD-10-PCS; 2018-09-30)
PROC: 0DJD8ZZ Inspection of Lower Intestinal Tract, Via Natural or Artificial Opening Endoscopic (ICD-10-PCS; 2018-09-30)
PROC: 0D7B8ZZ Dilation of Ileum, Via Natural or Artificial Opening Endoscopic (ICD-10-PCS; principal; 2018-09-30 10:36)
DX: K91.89 Other postprocedural complications and disorders of digestive system (principal); I95.9 Hypotension, unspecified; I10 Essential (primary) hypertension; E66.9 Obesity, unspecified; Y83.8 Other surgical procedures as the cause of abnormal reaction of the patient, or of later complication, without mention of misadventure at the time of the procedure; L92.9 Granulomatous disorder of the skin and subcutaneous tissue, unspecified; F32.9 Major depressive disorder, single episode, unspecified; Z90.49 Acquired absence of other specified parts of digestive tract; Z82.49 Family history of ischemic heart disease and other diseases of the circulatory system; Z87.891 Personal history of nicotine dependence; Z68.37 Body mass index [BMI] 37.0-37.9, adult; Z79.899 Other long term (current) drug therapy; Y92.89 Other specified places as the place of occurrence of the external cause
CPT/HCPCS: 36415; 44381; 44388; 45378; 80053; 81001; 85025; 86885; 86900; 86901; 86920; 87070; 87088; 99152; 99153; A4620; A6255; A6446; A7000; G0378; J0690; J0694; J1170; J2175; J2250; J2704; J2710; J3010; J3480; J3490; J7030; J7120